=== PATIENT | female | born 1980 | race Caucasian/White ===

== ENCOUNTER 2024-03-19 17:05 | Emergency (ER) | payer BC ==
[~2024-03-19] VITALS: Ht 175.3 cm; Wt 59.0 kg
[2024-03-19 17:37] LABS: BASOPHILS % (AUTO) 0.5 % (0.0-2.0); EOSINOPHILS # (AUTO) 0.2 K/uL (0.0-0.7); EOSINOPHILS % (AUTO) 2.6 % (0.0-6.0); HEMATOCRIT 39 % (33-45); HEMOGLOBIN 12.7 g/dL (11.5-14.8); LYMPHOCYTES # (AUTO) 2.2 K/uL (0.8-4.8); LYMPHOCYTES % (AUTO) 28.3 % (20.0-44.0); MEAN CORPUSCULAR HEMOGLOBIN 29 PG (26.0-33.0); MEAN CORPUSCULAR HGB CONC 33 g/dl (31.0-36.0); MEAN CORPUSCULAR VOLUME 89 fL (82-100); MONOCYTES # (AUTO) 0.4 K/uL (0.1-1.30); MONOCYTES % (AUTO) 5.6 % (2.0-12.0); NEUTROPHILS # (AUTO) 4.8 K/uL (1.8-8.9); PLATELET COUNT (AUTO) 459 K/uL (150-450); RED BLOOD CELL COUNT(AUTO) 4.33 MIL/uL (4.0-5.2); RED CELL DISTRIBUTION WIDTH 13.4 % (11.5-15.0); WHITE BLOOD COUNT (AUTO) 7.7 K/uL (4.3-11.0)
[2024-03-19 17:44] LABS: CALCIUM, SERUM 9.1 mg/dL (8.5-10.1); CARBON DIOXIDE 25 mmol/L (21-32); CHLORIDE 102 mmol/L (98-107); CREATININE 0.7 mg/dL (0.6-1.3); GLUCOSE 106 mg/dL (74-106); POTASSIUM 3.5 mmol/L (3.5-5.1); SODIUM SERUM 134 mmol/L (136-145); UREA NITROGEN, BLOOD 18 mg/dL (7-18)
[2024-03-19 17:47] LABS: INR 1.01 (0.91-1.10); PARTIAL THROMBOPLASTIN TIME 25.3 SEC (24.3-34.3); PROTHROMBIN TIME 10.4 SECS (9.2-11.1)
[2024-03-19] MEDS: diphenhydrAMINE HCL 50 MG/ML VIAL IV ONE (17:50)
[2024-03-19] MEDS: ONDANSETRON HCL/PF 4 MG/2 ML VIAL IVP ONE (17:50)
[2024-03-19] MEDS: IV NS 0.9% 1,000 ML BAG IV ONE (17:54)
[2024-03-19] MEDS: NITROGLYCERIN 0.4 MG/TAB BOTTLE SL ONE (18:00)
[2024-03-19] MEDS: ASPIRIN 325 MG TABLET PO ONE (18:00)
[2024-03-19] MEDS ORDERED: ASPIRIN 325 MG TABLET ONE (18:03)
[2024-03-19] MEDS ORDERED: diphenhydrAMINE HCL 50 MG/ML VIAL ONE (18:03)
[2024-03-19] MEDS ORDERED: ONDANSETRON HCL/PF 4 MG/2 ML VIAL ONE (18:03)
[2024-03-19 18:56] VITALS: BP 110/70; TEMP 97.9; O2SAT 100
== END 2024-03-19 18:57 | disposition home or self-care (01) ==
LOC: ER 17:13
DX: R07.9 Chest pain, unspecified (principal); F32.A Depression, unspecified; Z88.5 Allergy status to narcotic agent; Z60.2 Problems related to living alone
CPT/HCPCS: 99285; 96374; 71045; 96361; 96375; 93005; 85025; 80048; 36415; 84484; 85730; J1200; J2405; J7030